=== PATIENT | female | born 1935 | race Two or more races ===

== ENCOUNTER 2017-07-12 14:18 | Emergency (ER) | payer MEDICAID ==
[~2017-07-12] VITALS: Ht 152.4 cm; Wt 68.0 kg
[2017-07-12] MEDS ORDERED: PANTOPRAZOLE 40 MG/10 ML VIAL IV STA (15:08)
[2017-07-12 15:26] LABS: Basophils # (auto) 0.1 uL; Basophils % (auto) 0.6 % (0.0-2.0); Eosinophils # (auto) 0.1 uL; Hematocrit 40.5 % (36.0-46.0); Hemoglobin 13.1 g/dL (12.2-16.2); Lymphocytes # (auto) 3.5 uL; Lymphocytes % (auto) 24.6 % (10.0-50.0); Mean Corpuscular Hemoglobin 29.9 pg (28.0-32.0); Mean Corpuscular Hgb Conc. 32.4 g/dL (32.0-36.0); Mean Corpuscular Volume 92.3 fL (80.0-100.0); Monocytes # (auto) 0.6 uL; Monocytes % (auto) 4.5 % (0.0-12.0); Neutrophils % (auto) 69.3 % (37.0-80.0); Platelet Count (auto) 257 10^3/uL (140-450); Red Blood Cells 4.39 10^6/uL (4.0-5.20); Red Cell Distribution Width 13.7 % (11.8-14.3); White Blood Cell 14.4 10^3/uL (4.4-10.8)
[2017-07-12 15:30] LABS: Albumin 3.7 g/dL (3.4-5.0); BUN/Creatinine Ratio 21.2; Bilirubin, Total 0.6 mg/dL (0.2-1.0); Calcium 9.3 mg/dL (8.5-10.1); Potassium 4.2 mmol/L (3.5-5.1); Total Protein 7.9 g/dL (6.4-8.2)
[2017-07-12 17:02] VITALS: BP 138/77
== END 2017-07-12 17:53 | disposition home or self-care (01) ==
LOC: ER 14:18
DX: K59.00 Constipation, unspecified (principal); R51 Headache; M79.601 Pain in right arm; G20 Parkinson's disease; E11.9 Type 2 diabetes mellitus without complications; I10 Essential (primary) hypertension
CPT/HCPCS: 36415; 70450; 74176; 80053; 83690; 84484; 85025; 93005; 94761; 96374; 99285; C9113

== ENCOUNTER 2017-10-03 12:14 | Emergency (ER) | payer MEDICAID ==
[~2017-10-03] VITALS: Ht 149.9 cm; Wt 61.2 kg
[2017-10-03 14:04] LABS: Basophils # (auto) 0 uL; Basophils % (auto) 0.2 % (0.0-2.0); Eosinophils # (auto) 0.2 uL; Eosinophils % (auto) 1.4 % (0.0-7.0); Hematocrit 35.4 % (36.0-46.0); Hemoglobin 11.8 g/dL (12.2-16.2); Lymphocytes # (auto) 0.8 uL; Lymphocytes % (auto) 6.1 % (10.0-50.0); Mean Corpuscular Hemoglobin 29.5 pg (28.0-32.0); Mean Corpuscular Hgb Conc. 33.4 g/dL (32.0-36.0); Mean Corpuscular Volume 88.2 fL (80.0-100.0); Monocytes # (auto) 0.9 uL; Monocytes % (auto) 6.7 % (0.0-12.0); Neutrophils # (auto) 11.6 uL; Neutrophils % (auto) 85.6 % (37.0-80.0); Nucleated Red Blood Cells % 0.1 %; Platelet Count (auto) 267 10^3/uL (140-450); Red Blood Cells 4.01 10^6/uL (4.0-5.20); Red Cell Distribution Width 13.4 % (11.8-14.3); White Blood Cell 13.6 10^3/uL (4.4-10.8)
[2017-10-03 14:32] LABS: Alanine Aminotransferase < 6 U/L (13-56); Albumin 3.6 g/dL (3.4-5.0); Alkaline Phosphatase 88 U/L (45-117); Anion Gap 7 (5-15); Aspartate Aminotransferase 14 U/L (15-37); Bilirubin, Total 0.3 mg/dL (0.2-1.0); Blood Urea Nitrogen 27 mg/dL (7-18); Calcium 8.5 mg/dL (8.5-10.1); Carbon Dioxide 28 mmol/L (21-32); Chloride 104 mmol/L (98-107); GFR African American 54 mL/min; GFR Non-African American 44 mL/min; Glucose 207 mg/dL (74-106); Magnesium 2.2 mg/dL (1.6-2.6); Potassium 3.6 mmol/L (3.5-5.1); Sodium 139 mmol/L (136-145); Total Protein 7.8 g/dL (6.4-8.2)
[2017-10-03] MEDS ORDERED: cloNIDine HCL 0.1 MG TAB PO ONE (16:00)
[2017-10-03 17:16] VITALS: BP 125/55
== END 2017-10-03 17:53 | disposition home or self-care (01) ==
LOC: ER 12:14
DX: I10 Essential (primary) hypertension (principal); E11.9 Type 2 diabetes mellitus without complications; M19.90 Unspecified osteoarthritis, unspecified site; G20 Parkinson's disease
CPT/HCPCS: 36415; 71045; 72040; 80053; 83735; 84484; 85025; 93005

== ENCOUNTER 2018-01-03 10:06 | Emergency (ER) | payer SELFPAY ==
[2018-01-03 11:06] LABS: Basophils # (auto) 0 uL; Basophils % (auto) 0.7 % (0.0-2.0); Eosinophils # (auto) 0.2 uL; Eosinophils % (auto) 2.8 % (0.0-7.0); Hematocrit 38.1 % (36.0-46.0); Hemoglobin 12.4 g/dL (12.2-16.2); Lymphocytes # (auto) 1.5 uL; Lymphocytes % (auto) 27.2 % (10.0-50.0); Mean Corpuscular Hemoglobin 28.8 pg (28.0-32.0); Mean Corpuscular Hgb Conc. 32.4 g/dL (32.0-36.0); Mean Corpuscular Volume 88.7 fL (80.0-100.0); Monocytes # (auto) 0.4 uL; Monocytes % (auto) 7.8 % (0.0-12.0); Neutrophils # (auto) 3.4 uL; Neutrophils % (auto) 61.5 % (37.0-80.0); Nucleated Red Blood Cells % 0.1 %; Platelet Count (auto) 275 10^3/uL (140-450); Red Cell Distribution Width 14.4 % (11.8-14.3); White Blood Cell 5.5 10^3/uL (4.4-10.8)
[2018-01-03 11:28] LABS: Alanine Aminotransferase 11 U/L (13-56); Albumin 3.5 g/dL (3.4-5.0); Alkaline Phosphatase 95 U/L (45-117); Anion Gap 7 (5-15); Aspartate Aminotransferase 19 U/L (15-37); BUN/Creatinine Ratio 23.9; Bilirubin, Total 0.4 mg/dL (0.2-1.0); Blood Urea Nitrogen 26 mg/dL (7-18); Calcium 8.7 mg/dL (8.5-10.1); Carbon Dioxide 26 mmol/L (21-32); Chloride 105 mmol/L (98-107); GFR African American 62 mL/min; GFR Non-African American 51 mL/min; Glucose 159 mg/dL (74-106); Magnesium 2.4 mg/dL (1.6-2.6); Potassium 3.9 mmol/L (3.5-5.1); Sodium 138 mmol/L (136-145); Total Protein 7.8 g/dL (6.4-8.2)
[2018-01-03 11:39] VITALS: BP 155/80
[2018-01-03] MEDS ORDERED: traMADol HCL 50 MG TAB PO ONE (12:00)
== END 2018-01-03 12:26 | disposition home or self-care (01) ==
LOC: ER 10:12
DX: M79.1 Myalgia (principal); M19.90 Unspecified osteoarthritis, unspecified site; E11.9 Type 2 diabetes mellitus without complications; E78.5 Hyperlipidemia, unspecified; I10 Essential (primary) hypertension; G20 Parkinson's disease
CPT/HCPCS: 36415; 71046; 80053; 83735; 84484; 85025; 93005

== ENCOUNTER 2018-02-16 20:44 | Emergency (ER) | payer MEDICAID ==
[~2018-02-16] VITALS: Ht 172.7 cm; Wt 61.7 kg
[2018-02-16 21:31] LABS: Basophils # (auto) 0 uL; Basophils % (auto) 0.5 % (0.0-2.0); Eosinophils # (auto) 0.1 uL; Eosinophils % (auto) 2.1 % (0.0-7.0); Hemoglobin 11.9 g/dL (12.2-16.2); Lymphocytes # (auto) 2.1 uL; Mean Corpuscular Hemoglobin 28.8 pg (28.0-32.0); Mean Corpuscular Volume 87.2 fL (80.0-100.0); Monocytes # (auto) 0.6 uL; Monocytes % (auto) 8.1 % (0.0-12.0); Neutrophils # (auto) 3.9 uL; Neutrophils % (auto) 58.3 % (37.0-80.0); Platelet Count (auto) 241 10^3/uL (140-450); Red Blood Cells 4.13 10^6/uL (4.0-5.20); Red Cell Distribution Width 14.2 % (11.8-14.3); White Blood Cell 6.8 10^3/uL (4.4-10.8)
[2018-02-16 22:14] LABS: Alanine Aminotransferase 11 U/L (13-56); Albumin 3.4 g/dL (3.4-5.0); Alkaline Phosphatase 87 U/L (45-117); Anion Gap 9 (5-15); Aspartate Aminotransferase 11 U/L (15-37); BUN/Creatinine Ratio 26.2; Bilirubin, Total 0.2 mg/dL (0.2-1.0); Blood Urea Nitrogen 28 mg/dL (7-18); Calcium 8.5 mg/dL (8.5-10.1); Carbon Dioxide 25 mmol/L (21-32); Chloride 107 mmol/L (98-107); GFR African American 63 mL/min; GFR Non-African American 52 mL/min; Glucose 205 mg/dL (74-106); Magnesium 2.2 mg/dL (1.6-2.6); Potassium 3.9 mmol/L (3.5-5.1); Sodium 141 mmol/L (136-145); Total Protein 7.5 g/dL (6.4-8.2)
[2018-02-16 22:23] LABS: Urine Bacteria NONE SEEN /hpf (None Seen); Urine Blood Negative /uL (Negative); Urine Specific Gravity 1.017 (1.001-1.035); Urine WBC 1 /hpf (0 - 5)
[2018-02-16 23:07] LABS: INR 0.97 (0.9-1.15); Partial Thromboplastin Time 26.8 sec (23.78-33.04); Prothrombin Time 10.4 sec (9.27-12.13)
[2018-02-17] MEDS ORDERED: cloNIDine HCL 0.1 MG TAB PO ONE (01:30)
[2018-02-17] MEDS ORDERED: LACTULOSE 20Gm/30ML SOLN PO ONE (03:30)
[2018-02-17 03:54] VITALS: BP 136/59
== END 2018-02-17 04:00 | disposition home or self-care (01) ==
LOC: ER 20:44
DX: K59.00 Constipation, unspecified (principal); K42.9 Umbilical hernia without obstruction or gangrene; E11.9 Type 2 diabetes mellitus without complications; M19.90 Unspecified osteoarthritis, unspecified site; E78.5 Hyperlipidemia, unspecified; I10 Essential (primary) hypertension
CPT/HCPCS: 36415; 71045; 74176; 80053; 81001; 82962; 83605; 83735; 83880; 84484; 85025; 85610; 85730; 87040; 93005; 94761

== ENCOUNTER 2018-09-08 15:31 | Inpatient (IN) | payer MEDICAID | END 2018-09-13 16:55 | disposition home or self-care (01) | LOC: OVERFLOW 09-09 04:58 → ER 15:31 → EAST 09-09 06:15 | DX: I63.9 Cerebral infarction, unspecified (principal); E11.22 Type 2 diabetes mellitus with diabetic chronic kidney disease; G81.94 Hemiplegia, unspecified affecting left nondominant side; G45.9 Transient cerebral ischemic attack, unspecified; I12.9 Hypertensive chronic kidney disease with stage 1 through stage 4 chronic kidney disease, or unspecified chronic kidney disease; M06.9 Rheumatoid arthritis, unspecified; N18.3 Chronic kidney disease, stage 3 (moderate) ==

== ENCOUNTER 2020-08-16 17:29 | Inpatient (IN) | payer MEDICAID, OTHER ==
[~2020-08-16] VITALS: Ht 154.9 cm; Wt 51.5 kg
[~2020-08-16 17:29] MED LIST: CARB25TA22 PO; HYDR25TA4 PO; MULT1TAB95 PO; PRAV20TA3 PO
[2020-08-16] MEDS ORDERED: ALUM & MAG HYDROX-SIMETH LIQ(MAALOX) 30 ML PO ONE (18:00)
[2020-08-16] MEDS ORDERED: SODIUM CHLORIDE 0.9% 1,000 ML IV ONE (18:00)
[2020-08-16 19:34] LABS: Basophils # (auto) 0 10 ^3/uL (0-0.2); Basophils % (auto) 0.3 % (0.0-2.0); Eosinophils # (auto) 0 10 ^3/uL (0-0.8); Eosinophils % (auto) 0.3 % (0.0-7.0); Hematocrit 44.5 % (36.0-46.0); Hemoglobin 13.9 g/dL (12.2-16.2); Lymphocytes # (auto) 1.8 10 ^3/uL (0.4-5.4); Lymphocytes % (auto) 21.2 % (10.0-50.0); Mean Corpuscular Hgb Conc. 31.2 g/dL (32.0-36.0); Mean Corpuscular Volume 96.4 fL (80.0-100.0); Monocytes # (auto) 0.1 10 ^3/uL (0-1.3); Monocytes % (auto) 1.7 % (0.0-12.0); Neutrophils # (auto) 6.4 10 ^3/uL (1.6-8.6); Neutrophils % (auto) 76.5 % (37.0-80.0); Platelet Count (auto) 198 10^3/uL (140-450); Red Blood Cells 4.62 10^6/uL (4.0-5.20); Red Cell Distribution Width 15.4 % (11.8-14.3); White Blood Cell 8.3 10^3/uL (4.4-10.8)
[2020-08-16 19:44] LABS: Albumin 3.3 g/dL (3.4-5.0); Calcium 7.9 mg/dL (8.5-10.1); Magnesium 2.1 mg/dL (1.6-2.6); Potassium 4.1 mmol/L (3.5-5.1)
[2020-08-16 19:47] LABS: Bilirubin, Total 0.6 mg/dL (0.2-1.0); Total Protein 7.2 g/dL (6.4-8.2)
[2020-08-16 19:49] LABS: Lactic Acid w/Reflex 7.9 mmol/L (0.4-2.0)
[2020-08-16] MEDS ORDERED: SODIUM CHLORIDE 0.9% 500 ML IV ONE (20:15)
[2020-08-16] MEDS ORDERED: hydrALAZINE HCL 20 MG/ML VL IV ONE (22:45)
[2020-08-16] MEDS ORDERED: cefTRIAXone 1GM/50ML D5W 50 ML IV ONE (23:00)
[2020-08-16 23:39] LABS: Urine Amorphous Crystal FEW /hpf (None Seen); Urine Bacteria FEW /hpf (None Seen); Urine Blood 1+ /uL (Negative); Urine Specific Gravity 1.007 (1.001-1.035); Urine WBC 1 /hpf (0 - 5)
[2020-08-17] MEDS ORDERED: ACETAMINOPHEN 325 MG TAB PO PRN (03:00)
[2020-08-17] MEDS ORDERED: DEXTROSE (50%) 50ML SYRG IV PRN (03:00)
[2020-08-17] MEDS ORDERED: ONDANSETRON HCL 4 MG/2 ML VIAL IV PRN (03:00)
[2020-08-17] MEDS ORDERED: TEMAZEPAM 15 MG CAP PO PRN (03:00)
[2020-08-17] MEDS: metroNIDAZOLE 500MG/100ML 100 ML IV SCH ×2 (05:30→13:42)
[2020-08-17] MEDS: CARBIDOPA W LEVODOPA 25/100mg TABLET PO SCH ×2 (05:30→13:42)
[2020-08-17] MEDS: ACCU-CHEK COMFORT CURVE STRIP VI SCH ×4 (06:31→22:00)
[2020-08-17] MEDS: InsuLIN REG 1unit/0.01ml Soln (100units/ml) SC SCH ×4 (06:32→22:00)
[2020-08-17] MEDS: PANTOPRAZOLE 40 MG/10 ML VIAL INJ IV SCH (09:06)
[2020-08-17] MEDS: APIXABAN 5 MG TAB PO SCH (09:06)
[2020-08-17] MEDS: cefTRIAXone 1GM/50ML D5W 50 ML IV SCH (09:06)
[2020-08-17] MEDS: LISINOPRIL 20 MG TAB PO SCH (09:06)
[2020-08-17] MEDS: HYDROcodone-ACET 5/325MG TAB PO PRN ×2 (13:43→17:29)
[2020-08-18] MEDS: metroNIDAZOLE 500MG/100ML 100 ML IV SCH ×4 (00:47→22:43)
[2020-08-18] MEDS: APIXABAN 5 MG TAB PO SCH (00:47)
[2020-08-18] MEDS: CARBIDOPA W LEVODOPA 25/100mg TABLET PO SCH ×4 (00:47→22:43)
[2020-08-18 07:04] LABS: Basophils # (auto) 0 10 ^3/uL (0-0.2); Basophils % (auto) 0.2 % (0.0-2.0); Eosinophils # (auto) 0 10 ^3/uL (0-0.8); Hematocrit 36.9 % (36.0-46.0); Hemoglobin 12.2 g/dL (12.2-16.2); Lymphocytes % (auto) 12.6 % (10.0-50.0); Mean Corpuscular Hemoglobin 30.2 pg (28.0-32.0); Mean Corpuscular Hgb Conc. 33.2 g/dL (32.0-36.0); Mean Corpuscular Volume 91.1 fL (80.0-100.0); Monocytes # (auto) 0.9 10 ^3/uL (0-1.3); Monocytes % (auto) 11.6 % (0.0-12.0); Neutrophils # (auto) 5.8 10 ^3/uL (1.6-8.6); Neutrophils % (auto) 75.6 % (37.0-80.0); Nucleated Red Blood Cells % 0.1 %; Platelet Count (auto) 171 10^3/uL (140-450); Red Blood Cells 4.04 10^6/uL (4.0-5.20); Red Cell Distribution Width 14.9 % (11.8-14.3); White Blood Cell 7.7 10^3/uL (4.4-10.8)
[2020-08-18 07:45] LABS: Potassium 3.8 mmol/L (3.5-5.1)
[2020-08-18 07:51] LABS: Albumin 2.6 g/dL (3.4-5.0); BUN/Creatinine Ratio 32.4; Bilirubin, Total 0.3 mg/dL (0.2-1.0); Total Protein 5.8 g/dL (6.4-8.2)
[2020-08-18] MEDS: ACCU-CHEK COMFORT CURVE STRIP VI SCH ×4 (08:31→21:34)
[2020-08-18] MEDS: InsuLIN REG 1unit/0.01ml Soln (100units/ml) SC SCH ×4 (08:32→21:34)
[2020-08-18] MEDS: cefTRIAXone 1GM/50ML D5W 50 ML IV SCH (09:25)
[2020-08-18] MEDS: LISINOPRIL 20 MG TAB PO SCH (10:00)
[2020-08-18] MEDS ORDERED: METF-869 PO (12:23)
[2020-08-18] MEDS ORDERED: LISI-646 PO (12:23)
[2020-08-18] MEDS ORDERED: APIX5TAB PO (12:23)
[2020-08-18 13:00] VITALS: BP 123/57
[2020-08-18 13:54] LABS: Hematocrit 36.7 % (36.0-46.0); Hemoglobin 11.9 g/dL (12.2-16.2)
[2020-08-18] MEDS ORDERED: LORazepam 2MG/ML-1ML VIAL IV PRN (15:15)
[2020-08-18 17:00] VITALS: BP 166/101
[2020-08-18] MEDS: cloNIDine HCL 0.1 MG TAB PO PRN (17:09)
[2020-08-18 18:15] VITALS: BP 114/49
[2020-08-18 18:28] LABS: Hematocrit 35.6 % (36.0-46.0); Hemoglobin 11.7 g/dL (12.2-16.2)
[2020-08-18 22:00] VITALS: BP 136/68
[2020-08-19 05:00] VITALS: BP 140/71
[2020-08-19] MEDS: metroNIDAZOLE 500MG/100ML 100 ML IV SCH ×3 (06:02→21:00)
[2020-08-19] MEDS: InsuLIN REG 1unit/0.01ml Soln (100units/ml) SC SCH ×4 (06:02→20:46)
[2020-08-19] MEDS: ACCU-CHEK COMFORT CURVE STRIP VI SCH ×4 (06:02→20:46)
[2020-08-19] MEDS: CARBIDOPA W LEVODOPA 25/100mg TABLET PO SCH ×3 (06:02→21:01)
[2020-08-19 08:23] LABS: Hematocrit 34.1 % (36.0-46.0); Hemoglobin 11.3 g/dL (12.2-16.2)
[2020-08-19 08:49] VITALS: BP 162/69
[2020-08-19] MEDS: LISINOPRIL 20 MG TAB PO SCH ×2 (09:20→09:22)
[2020-08-19] MEDS: PANTOPRAZOLE 40 MG/10 ML VIAL INJ IV SCH ×3 (09:20→21:01)
[2020-08-19] MEDS: cefTRIAXone 1GM/50ML D5W 50 ML IV SCH (09:21)
[2020-08-19 12:56] VITALS: BP 146/68
[2020-08-19 16:19] LABS: Hematocrit 35.3 % (36.0-46.0); Hemoglobin 11.5 g/dL (12.2-16.2)
[2020-08-19 16:39] VITALS: BP 164/67
[2020-08-19] MEDS: cloNIDine HCL 0.1 MG TAB PO PRN (16:44)
[2020-08-19 21:43] LABS: Hematocrit 33.8 % (36.0-46.0); Hemoglobin 10.9 g/dL (12.2-16.2)
[2020-08-19 22:06] VITALS: BP 155/68
[2020-08-20] VITALS (7 sets, daily range): BP systolic 145–159; BP diastolic 62–75
[2020-08-20] MEDS: InsuLIN REG 1unit/0.01ml Soln (100units/ml) SC SCH ×4 (05:43→21:56)
[2020-08-20] MEDS: ACCU-CHEK COMFORT CURVE STRIP VI SCH ×4 (05:43→21:56)
[2020-08-20] MEDS: metroNIDAZOLE 500MG/100ML 100 ML IV SCH ×3 (05:51→22:01)
[2020-08-20] MEDS: CARBIDOPA W LEVODOPA 25/100mg TABLET PO SCH ×3 (05:52→22:02)
[2020-08-20 07:11] LABS: Basophils # (auto) 0 10 ^3/uL (0-0.2); Basophils % (auto) 0.1 % (0.0-2.0); Eosinophils # (auto) 0 10 ^3/uL (0-0.8); Eosinophils % (auto) 0.1 % (0.0-7.0); Hematocrit 36.3 % (36.0-46.0); Hemoglobin 11.4 g/dL (12.2-16.2); Lymphocytes # (auto) 0.7 10 ^3/uL (0.4-5.4); Lymphocytes % (auto) 9.6 % (10.0-50.0); Mean Corpuscular Hemoglobin 29.4 pg (28.0-32.0); Mean Corpuscular Hgb Conc. 31.5 g/dL (32.0-36.0); Mean Corpuscular Volume 93.3 fL (80.0-100.0); Monocytes # (auto) 0.7 10 ^3/uL (0-1.3); Monocytes % (auto) 9.8 % (0.0-12.0); Neutrophils # (auto) 5.8 10 ^3/uL (1.6-8.6); Neutrophils % (auto) 80.4 % (37.0-80.0); Platelet Count (auto) 192 10^3/uL (140-450); Red Blood Cells 3.89 10^6/uL (4.0-5.20); Red Cell Distribution Width 14.9 % (11.8-14.3); White Blood Cell 7.2 10^3/uL (4.4-10.8)
[2020-08-20 07:35] LABS: Potassium 3.3 mmol/L (3.5-5.1)
[2020-08-20] MEDS: cefTRIAXone 1GM/50ML D5W 50 ML IV SCH (09:10)
[2020-08-20] MEDS: LISINOPRIL 20 MG TAB PO SCH (09:11)
[2020-08-20] MEDS: PANTOPRAZOLE 40 MG/10 ML VIAL INJ IV SCH ×2 (09:11→22:02)
[2020-08-20] MEDS ORDERED: POTASSIUM EFFERVESENT TAB 25 MEQ PO ONE (10:30)
[2020-08-20] MEDS: SODIUM BICARBONATE 650 MG TAB PO SCH ×2 (13:32→22:02)
[2020-08-21] VITALS (7 sets, daily range): BP systolic 133–201; BP diastolic 58–91
[2020-08-21] MEDS: CARBIDOPA W LEVODOPA 25/100mg TABLET PO SCH ×3 (05:45→22:34)
[2020-08-21] MEDS: metroNIDAZOLE 500MG/100ML 100 ML IV SCH ×3 (05:45→22:00)
[2020-08-21] MEDS: SODIUM BICARBONATE 650 MG TAB PO SCH ×3 (05:45→22:00)
[2020-08-21] MEDS: InsuLIN REG 1unit/0.01ml Soln (100units/ml) SC SCH ×4 (06:33→22:00)
[2020-08-21] MEDS: ACCU-CHEK COMFORT CURVE STRIP VI SCH ×4 (06:33→22:34)
[2020-08-21 07:18] LABS: Hematocrit 32.1 % (36.0-46.0); Hemoglobin 10.4 g/dL (12.2-16.2)
[2020-08-21] MEDS: cefTRIAXone 1GM/50ML D5W 50 ML IV SCH (11:32)
[2020-08-21] MEDS: PANTOPRAZOLE 40 MG/10 ML VIAL INJ IV SCH ×2 (11:32→22:00)
[2020-08-21] MEDS: LISINOPRIL 20 MG TAB PO SCH (11:33)
[2020-08-21] MEDS: cloNIDine HCL 0.1 MG TAB PO PRN (17:01)
[2020-08-22 05:00] VITALS: BP 144/67
[2020-08-22] MEDS: SODIUM BICARBONATE 650 MG TAB PO SCH ×2 (06:00→14:00)
[2020-08-22] MEDS: metroNIDAZOLE 500MG/100ML 100 ML IV SCH ×3 (06:10→21:19)
[2020-08-22] MEDS: CARBIDOPA W LEVODOPA 25/100mg TABLET PO SCH ×3 (06:10→21:19)
[2020-08-22] MEDS: ACCU-CHEK COMFORT CURVE STRIP VI SCH ×4 (06:38→21:19)
[2020-08-22] MEDS: InsuLIN REG 1unit/0.01ml Soln (100units/ml) SC SCH ×4 (06:39→22:00)
[2020-08-22 08:00] VITALS: BP_SYST 138; BP_DIAS 60; BP_DIAS 79
[2020-08-22] MEDS: cefTRIAXone 1GM/50ML D5W 50 ML IV SCH (09:00)
[2020-08-22] MEDS: PANTOPRAZOLE 40 MG/10 ML VIAL INJ IV SCH ×2 (10:00→21:19)
[2020-08-22] MEDS: LISINOPRIL 20 MG TAB PO SCH (10:00)
[2020-08-22 13:00] VITALS: BP 154/67
[2020-08-22 17:00] VITALS: BP 157/78
[2020-08-22 21:00] VITALS: BP 174/81
[2020-08-22] MEDS: cloNIDine HCL 0.1 MG TAB PO PRN (21:48)
[2020-08-23 05:36] VITALS: BP 157/66
[2020-08-23] MEDS: metroNIDAZOLE 500MG/100ML 100 ML IV SCH (05:59)
[2020-08-23] MEDS: CARBIDOPA W LEVODOPA 25/100mg TABLET PO SCH ×3 (05:59→21:27)
[2020-08-23] MEDS: ACCU-CHEK COMFORT CURVE STRIP VI SCH ×3 (06:05→21:18)
[2020-08-23] MEDS: InsuLIN REG 1unit/0.01ml Soln (100units/ml) SC SCH ×4 (06:05→21:18)
[2020-08-23 07:12] LABS: Calcium 8.1 mg/dL (8.5-10.1)
[2020-08-23 07:13] LABS: BUN/Creatinine Ratio 21.4
[2020-08-23 07:14] LABS: Basophils # (auto) 0 10 ^3/uL (0-0.2); Basophils % (auto) 0.2 % (0.0-2.0); Eosinophils # (auto) 0 10 ^3/uL (0-0.8); Eosinophils % (auto) 0.2 % (0.0-7.0); Hematocrit 33.4 % (36.0-46.0); Hemoglobin 11.3 g/dL (12.2-16.2); Lymphocytes # (auto) 0.8 10 ^3/uL (0.4-5.4); Lymphocytes % (auto) 15.1 % (10.0-50.0); Mean Corpuscular Hemoglobin 30.3 pg (28.0-32.0); Mean Corpuscular Hgb Conc. 33.8 g/dL (32.0-36.0); Mean Corpuscular Volume 89.7 fL (80.0-100.0); Monocytes # (auto) 0.7 10 ^3/uL (0-1.3); Monocytes % (auto) 13.5 % (0.0-12.0); Neutrophils # (auto) 3.7 10 ^3/uL (1.6-8.6); Nucleated Red Blood Cells % 0.1 %; Platelet Count (auto) 253 10^3/uL (140-450); Red Blood Cells 3.73 10^6/uL (4.0-5.20); Red Cell Distribution Width 14.3 % (11.8-14.3); White Blood Cell 5.3 10^3/uL (4.4-10.8)
[2020-08-23 07:16] LABS: Potassium 2.8 mmol/L (3.5-5.1)
[2020-08-23] MEDS ORDERED: POTASSIUM CHL 20 Meq TABLET PO ONE (08:00)
[2020-08-23] MEDS ORDERED: POTASSIUM EFFERVESENT TAB 25 MEQ PO ONE (15:00)
[2020-08-23] MEDS: cefTRIAXone 1GM/50ML D5W 50 ML IV SCH (15:20)
[2020-08-23] MEDS: LISINOPRIL 20 MG TAB PO SCH (15:21)
[2020-08-23] MEDS: metroNIDAZOLE 500 MG TAB PO SCH ×2 (15:27→21:26)
[2020-08-23 22:00] VITALS: BP 138/68
[2020-08-24 05:00] VITALS: BP 146/65
[2020-08-24] MEDS: InsuLIN REG 1unit/0.01ml Soln (100units/ml) SC SCH ×3 (05:42→17:00)
[2020-08-24] MEDS: ACCU-CHEK COMFORT CURVE STRIP VI SCH ×3 (05:42→17:00)
[2020-08-24] MEDS: CARBIDOPA W LEVODOPA 25/100mg TABLET PO SCH ×2 (05:42→14:23)
[2020-08-24] MEDS: metroNIDAZOLE 500 MG TAB PO SCH ×2 (05:42→14:23)
[2020-08-24 06:26] LABS: Calcium 7.8 mg/dL (8.5-10.1)
[2020-08-24 06:37] LABS: Potassium 2.9 mmol/L (3.5-5.1)
[2020-08-24] MEDS ORDERED: POTASSIUM EFFERVESENT TAB 25 MEQ PO ONE ×2 (07:00→11:00)
[2020-08-24 08:24] VITALS: BP 170/86
[2020-08-24] MEDS: cefTRIAXone 1GM/50ML D5W 50 ML IV SCH (09:33)
[2020-08-24] MEDS: LISINOPRIL 20 MG TAB PO SCH (09:34)
[2020-08-24] MEDS ORDERED: PANTOPRAZOLE 40 MG TAB PO SCH (10:00)
[2020-08-24] MEDS ORDERED: POTASSIUM CHLORIDE 40 MEQ, LIDOCAINE 1% (LOCAL ANESTH.) 4 ML in SODIUM CHL 0.9% 250 ML IV ONE (11:00)
[2020-08-24 12:30] VITALS: BP 160/70
[2020-08-24 14:40] VITALS: BP 160/70
[2020-08-24] MEDS ORDERED: POTASSIUM CHL 20 Meq TABLET PO ONE (17:00)
[2020-08-24 20:26] LABS: Potassium 3.1 mmol/L (3.5-5.1)
[2020-08-24 20:35] LABS: Albumin 2.3 g/dL (3.4-5.0); BUN/Creatinine Ratio 16.7; Bilirubin, Total 0.3 mg/dL (0.2-1.0); Calcium 7.9 mg/dL (8.5-10.1); Total Protein 5.5 g/dL (6.4-8.2)
== END 2020-08-24 18:00 | disposition hospice, home (50) | DRG 251 ==
LOC: EDBD 17:29 → ER 17:29 → OVERFLOW 17:30 → EDUNIT# 17:30 → CENTRAL 08-18 11:08 → TELE-CENTR 08-18 18:54 → TELE-WESTW 08-22 18:13
PROVIDERS: ADMIT Nurse Practitioner; ATTEND Internal Medicine
DX: R10.9 Unspecified abdominal pain (principal); U07.1 COVID-19; E44.0 Moderate protein-calorie malnutrition; L89.151 Pressure ulcer of sacral region, stage 1; N17.9 Acute kidney failure, unspecified; J12.89 Other viral pneumonia; E86.0 Dehydration; K92.2 Gastrointestinal hemorrhage, unspecified; D62 Acute posthemorrhagic anemia; G20 Parkinson's disease; E11.9 Type 2 diabetes mellitus without complications; I16.0 Hypertensive urgency; R19.09 Other intra-abdominal and pelvic swelling, mass and lump; Z68.21 Body mass index [BMI] 21.0-21.9, adult; K52.9 Noninfective gastroenteritis and colitis, unspecified; I10 Essential (primary) hypertension; F41.9 Anxiety disorder, unspecified
CPT/HCPCS: 36415; 71045; 74176; 76856; 80048; 80053; 81001; 82270; 82378; 82962; 83036; 83605; 83690; 83735; 85014; 85018; 85025; 86301; 86304; 87045; 87086; 87426; 87427; 87493; C9113; G0378; J0696; J1815; J2001; J3490